=== PATIENT | female | born 1965 | race Caucasian/White ===

== ENCOUNTER 2016-11-26 08:15 | Outpatient (RCR) | payer MEDICARE, MEDICAID ==
[~2016-11-26 08:15] MED LIST: ALBUTEROL0.09 MG/A1 IH; ALEVE220 MG PO; AMLODIPINE5 MG PO; ANORO IH; CIPRO 500MG TA500 MG PO; DESYREL 100MG100 MG PO; DESYREL 50MG50 MG PO; DEXILANT30 MG PO; DEXILANT60 MG PO; DEXOLANT; DILAUDID 2MG TAB2 MG PO; ENTOCORT EC3 MG PO; IMITREX50 MG PO; KEPPRA 500MG500 MG PO; LINZESS290CAP PO; LIPITOR 10MG10 MG PO; LORTAB 5/500 501 TAB PO; LORTAB 7.5/5001 TAB PO; LUNESTA; MOBIC 7.5MG7.5 MG PO; MUCINEX 60600 MG/TAB PO; NEXIUM40 MG PO; NICOTROL NS; NORCO 325 MG-51 TAB PO; NORTRIPTYLINE25 MG PO; NYQUIL; PERCOCET 325 MG1 TA2 PO; PERCOCET 325 MG1 TAB PO; PERCOCET 5/321 UDTAB PO; PHENERGAN 25 TA25 MG PO; PREMARIN 0.9MG0.9 MG PO; PREMARIN0.625 MG PO; RT SPIRIVA18 MCG IH; SOMA 350MG350 MG/TAB PO; SOMA350 MG PO; SPIRIVA18 MCG IH; TOPCARE ASPIRI325 MG PO; TRAZADONE HYDR100 MG PO; XANAX 0.5MG0.5 MG PO; XANAX 1MG1 MG PO; ZOFRAN 4MG T4 MG/TAB PO; ZOFRAN ODT4 MG PO; [UNRECOGNIZED DRUG - CODE] PO; [UNRECOGNIZED DRUG - CODE] PO; [UNRECOGNIZED DRUG - OTHER] PO
== END 2016-12-03 20:19 | disposition still patient (30) ==
LOC: WSPT 08:15
DX: M54.16 Radiculopathy, lumbar region (principal); G89.29 Other chronic pain
CPT/HCPCS: G0283-GP; G8978-GP; G8979-GP; G8980-GP

== ENCOUNTER → 2017-01-17 | Outpatient (CLI) | payer MEDICARE, MEDICAID | LOC: COL.RAD 08:30 | DX: J98.11 Atelectasis (principal); J43.9 Emphysema, unspecified; J98.4 Other disorders of lung; F17.200 Nicotine dependence, unspecified, uncomplicated | CPT/HCPCS: Q9967 ==

== ENCOUNTER → 2017-03-01 | Outpatient (CLI) | payer MEDICARE, MEDICAID ==
[~2017-03-01] VITALS: Ht 162.6 cm; Wt 64.0 kg
[~2017-03-01] MED LIST changes: +NITROSTAT0.4 MG/TAB SL; +VENTOLIN0.09 MG IH
[2017-03-01 06:45] VITALS: BP 113/71; PULSE 78
[2017-03-01 07:55] VITALS: BP 118/663; PULSE 94
[2017-03-01 07:56] VITALS: BP 120/69; PULSE 94
[2017-03-01 07:57] VITALS: BP 125/73; PULSE 92
[2017-03-01 07:58] VITALS: BP 125/71; PULSE 89
== END ==
LOC: COL.CARD 06:23
DX: R07.9 Chest pain, unspecified (principal)
CPT/HCPCS: A9502; J2785

== ENCOUNTER 2017-07-21 03:00 | Emergency (ER) | payer MEDICARE, MEDICAID ==
[~2017-07-21] VITALS: Ht 172.7 cm; Wt 60.0 kg
[2017-07-21 03:06] VITALS: TEMP 98
[2017-07-21 03:43] LABS: COLLECTION METHOD CLEAN CATCH
[2017-07-21 03:49] LABS: BASO # 0.1 (0.0-0.2); EOS # 0.2 (0.0-0.7); EOS % 1.8 % (0-4.0); GRAN # 3.4 (1.4-6.5); HEMATOCRIT 44.3 % (37.0-47.0); HEMOGLOBIN 14.8 g/dl (12.5-16.0); LYMPH # 4.8 (1.2-3.4); LYMPH % 52.1 % (20.0-51.0); MEAN CELL VOLUME 90 fl (80.0-100.0); MEAN CORPUSCULAR HEMOGLOBIN 30 pg (27.0-31.0); MEAN CORPUSCULAR HGB CONC 33 g/dl (33.0-37.0); MEAN PLATELET VOLUME 9.3 fl (7.4-10.4); MONO # 0.7 (0.1-0.6); MONO % 7.8 % (1.7-9.3); PLATELET COUNT 281 K/mm3 (130-400); RED BLOOD COUNT 4.94 M/mm3 (4.10-5.30); REDCELL DISTRIBUTION WIDTH-CV 12.7 % (11.5-14.5)
[2017-07-21 04:02] LABS: MUCOUS Present /lpf; PH 5 (5-8); SQUAMOUS EPITHELIAL 0-2 /hpf; URINE APPEARANCE Clear; URINE BACTERIA None Seen /hpf; URINE BILIRUBIN Negative (NEGATIVE); URINE BLOOD 2+ (NEGATIVE); URINE COLOR Straw; URINE GLUCOSE Negative (NEGATIVE); URINE KETONE Negative (NEGATIVE); URINE LEUKOCYTE ESTERASE Negative (NEGATIVE); URINE NITRATE Negative (NEGATIVE); URINE PROTEIN(semi-quant) Negative (NEGATIVE); URINE RBC 0-2 /hpf; URINE UROBILINOGEN Negative (NEGATIVE)
[2017-07-21 04:10] LABS: TRICYCLIC ANTIDEPRESS URINE NEGATIVE
[2017-07-21 04:20] LABS: ALANINE AMINOTRANSFERASE 24 U/L (9-52); ALBUMIN 4.4 gm/dL (3.5-5.0); ALCOHOL(ethanol),MEDICAL 197 mg/dL; ALKALINE PHOSPHATASE 114 U/L (50-136); ANION GAP 12 mmol/L (7-16); AST,SGOT 24 U/L (15-37); BILIRUBIN,TOTAL 0.3 mg/dL (0.0-1.0); BLOOD UREA NITROGEN 13 mg/dL (7-17); CALCIUM 9.7 mg/dL (8.4-10.2); CARBON DIOXIDE 25 mmol/L (22-30); CHLORIDE 107 mmol/L (98-107); CREATININE, serum 0.59 mg/dL (0.52-1.25); GLUCOSE 108 mg/dL (74-106); SODIUM 144 mmol/L (137-145); TOTAL PROTEIN 7.4 gm/dL (6.4-8.2)
[2017-07-21 04:21] LABS: ACETAMINOPHEN < 10 ug/mL (10-30); SALICYLATE < 1.0 mg/dL
[2017-07-21 10:41] VITALS: BP 102/73; PULSE 96
== END 2017-07-21 10:50 | disposition home or self-care (01) ==
LOC: COL.ER 03:00
PROVIDERS: Emergency Medicine
DX: T42.4X2A Poisoning by benzodiazepines, intentional self-harm, initial encounter (principal); F10.129 Alcohol abuse with intoxication, unspecified; Y90.6 Blood alcohol level of 120-199 mg/100 ml; R45.851 Suicidal ideations; J44.9 Chronic obstructive pulmonary disease, unspecified; F32.9 Major depressive disorder, single episode, unspecified; F17.210 Nicotine dependence, cigarettes, uncomplicated; F12.90 Cannabis use, unspecified, uncomplicated; Z90.89 Acquired absence of other organs; Z90.49 Acquired absence of other specified parts of digestive tract; Z90.710 Acquired absence of both cervix and uterus
CPT/HCPCS: J2765; J7030

== ENCOUNTER 2017-08-29 10:45 | Outpatient (RCR) | payer MEDICARE, MEDICAID | END 2017-11-07 | disposition home or self-care (01) | LOC: WSPT | DX: M76.32 Iliotibial band syndrome, left leg (principal); M76.31 Iliotibial band syndrome, right leg | CPT/HCPCS: G8978-GP; G8979-GP ==

== ENCOUNTER 2018-10-02 05:09 | Emergency (ER) | payer MEDICARE, MEDICAID ==
[~2018-10-02] VITALS: Ht 162.6 cm; Wt 56.4 kg
[2018-10-02 05:11] VITALS: BP 127/103
[2018-10-02] MEDS ORDERED: CRUTCHES MC (05:53)
[2018-10-02] MEDS ORDERED: NORCO 325 MG-51 TAB PO (06:21)
[2018-10-02 07:40] VITALS: PULSE 93; TEMP 96.8
== END 2018-10-02 06:50 | disposition home or self-care (01) ==
LOC: COL.ER 05:09
DX: S82.841A Displaced bimalleolar fracture of right lower leg, initial encounter for closed fracture (principal); I10 Essential (primary) hypertension; G40.909 Epilepsy, unspecified, not intractable, without status epilepticus; J44.9 Chronic obstructive pulmonary disease, unspecified; F31.9 Bipolar disorder, unspecified; E78.5 Hyperlipidemia, unspecified; F17.210 Nicotine dependence, cigarettes, uncomplicated; F10.129 Alcohol abuse with intoxication, unspecified; W10.9XXA Fall (on) (from) unspecified stairs and steps, initial encounter
CPT/HCPCS: Q4045

== ENCOUNTER → 2018-10-05 | Outpatient (CLI) | payer MEDICARE, MEDICAID ==
[~2018-10-05] MED LIST changes: +CRUTCHES MC
== END ==
LOC: COL.RAD 08:00
DX: S82.51XA Displaced fracture of medial malleolus of right tibia, initial encounter for closed fracture (principal); S93.401A Sprain of unspecified ligament of right ankle, initial encounter

== ENCOUNTER 2019-02-16 10:15 | Outpatient (RCR) | payer MEDICARE, MEDICAID | END 2019-04-12 11:05 | disposition home or self-care (01) | LOC: WSC | DX: S82.841A Displaced bimalleolar fracture of right lower leg, initial encounter for closed fracture (principal); Z98.890 Other specified postprocedural states ==

== ENCOUNTER 2019-10-25 19:34 | Inpatient (IN) | payer MEDICARE, MEDICAID ==
[2019-10-25] VITALS (72 sets, daily range): BP systolic 132; BP diastolic 80; PULSE 73; TEMP 98; O2SAT 99–100
[~2019-10-25] VITALS: Ht 162.6 cm; Wt 66.2 kg
[2019-10-25 20:07] LABS: BASO # 0.1 (0.0-0.2); EOS # 0.1 (0.0-0.7); EOS % 1.3 % (0-4.0); GRAN # 4.9 (1.4-6.5); GRAN % 49.7 % (42.2-75.2); HEMATOCRIT 44.4 % (37.0-47.0); HEMOGLOBIN 14.7 g/dl (12.5-16.0); LYMPH # 4.1 (1.2-3.4); LYMPH % 40.7 % (20.0-51.0); MEAN CELL VOLUME 92 fl (80.0-100.0); MEAN CORPUSCULAR HEMOGLOBIN 31 pg (27.0-31.0); MEAN CORPUSCULAR HGB CONC 33 g/dl (33.0-37.0); MEAN PLATELET VOLUME 9.5 fl (7.4-10.4); MONO # 0.7 (0.1-0.6); MONO % 7.1 % (1.7-9.3); PLATELET COUNT 315 K/mm3 (130-400); RED BLOOD COUNT 4.82 M/mm3 (4.10-5.30); REDCELL DISTRIBUTION WIDTH-CV 13.7 % (11.5-14.5)
[2019-10-25 20:18] LABS: ALANINE AMINOTRANSFERASE 187 U/L (4-34); ALBUMIN 4.9 gm/dL (3.5-5.0); ALCOHOL(ethanol),MEDICAL 199 mg/dL; ALKALINE PHOSPHATASE 157 U/L (50-136); ANION GAP 9 mmol/L (7-16); AST,SGOT 260 U/L (15-37); BILIRUBIN,TOTAL 0.7 mg/dL (0.0-1.0); BLOOD UREA NITROGEN 20 mg/dL (7-17); CARBON DIOXIDE 25 mmol/L (22-30); CHLORIDE 106 mmol/L (98-107); GLUCOSE 97 mg/dL (74-106); LACTATE DEHYDROGENASE 1201 U/L (313-618); LIPASE 494 U/L (23-300); POTASSIUM 4.3 mmol/L (3.4-5.0); SODIUM 140 mmol/L (137-145); TOTAL PROTEIN 8.8 gm/dL (6.4-8.2)
[2019-10-25 20:28] LABS: TROPONIN-I < 0.012 ng/mL (0.000-0.035)
--- NOTE | 2019-10-25 22:40 | NUR ---
Patient arrives at this time via ED cart. Patient able to stand with assistance of one. Patient unsteadily walks to unit bed. Patient lays down in bed and is quickly snoring asleep. Attached to unit monitoring equipment and 2L NC continued. Patient awakens to name and can answer short questions, but quickly falls back asleep. Patient answers orientation questions correctly x4, but 10mins later with provider is unable to answer some questions. Assessment complete with no significant findings. Patient is a poor historian due to ETOH intoxication. Med rec is unable to be completed with patient, updated based on pharmacy record. Patient is able to confirm some allergies but becomes confused and falls asleep. Will attempt to reconfirm when she is more awake. Patient has no further needs at this time. Will continue to monitor. Call light within reach. bed alarm on
[2019-10-25] MEDS ORDERED: XANAX2 MG PO (23:09)
[2019-10-25] MEDS ORDERED: LIPITOR20 MG PO (23:14)
[2019-10-25] MEDS ORDERED: LOPID 600M600 MG/TAB PO (23:18)
[2019-10-25] MEDS ORDERED: TOPROL XL 50MG50 MG PO (23:20)
[2019-10-25] MEDS ORDERED: TOPAMAX50 MG PO (23:21)
[2019-10-25] MEDS ORDERED: ZOFRAN 4MG T4 MG/TAB PO (23:22)
[2019-10-26] VITALS (571 sets, daily range): BP systolic 118–138; BP diastolic 65–85; PULSE 63–80; TEMP 97.7–98.2; O2SAT 96–100
--- NOTE | 2019-10-26 04:30 | NUR ---
Patient is much more awake now and is able to answer questions. Med rec complete. Patient resting in bed. States that some pain is coming back in her abdomen and back, but that she is just trying to go back to sleep before requesting more pain meds. Will continue to monitor. Call light within reach. Bed alarm on.
[2019-10-26] MEDS ORDERED: VITAMINC1000TA PO (04:31)
[2019-10-26 04:32] LABS: PHOSPHOROUS 3.9 mg/dL (2.5-4.5)
[2019-10-26] MEDS ORDERED: VIVLODEX10 MG PO (04:42)
[2019-10-26 06:02] LABS: BASO # 0.1 (0.0-0.2); EOS # 0.1 (0.0-0.7); EOS % 1.7 % (0-4.0); GRAN # 3.9 (1.4-6.5); GRAN % 50.9 % (42.2-75.2); HEMATOCRIT 37.2 % (37.0-47.0); LYMPH # 2.8 (1.2-3.4); LYMPH % 36.4 % (20.0-51.0); MEAN CELL VOLUME 95 fl (80.0-100.0); MEAN CORPUSCULAR HEMOGLOBIN 31 pg (27.0-31.0); MEAN CORPUSCULAR HGB CONC 32 g/dl (33.0-37.0); MEAN PLATELET VOLUME 9.6 fl (7.4-10.4); MONO # 0.7 (0.1-0.6); MONO % 9.6 % (1.7-9.3); PLATELET COUNT 255 K/mm3 (130-400); RED BLOOD COUNT 3.92 M/mm3 (4.10-5.30); REDCELL DISTRIBUTION WIDTH-CV 14.1 % (11.5-14.5)
[2019-10-26 06:15] LABS: INR 1.1 (0.8-3.0); PROTHROMBIN TIME 12.2 SECONDS (9.7-12.8)
[2019-10-26 06:16] LABS: ALBUMIN 3.7 gm/dL (3.5-5.0); BILIRUBIN,TOTAL 0.6 mg/dL (0.0-1.0); CALCIUM 8.3 mg/dL (8.4-10.2); CREATININE, serum 0.56 (0.52-1.25); POTASSIUM 4.2 mmol/L (3.4-5.0); TOTAL PROTEIN 6.7 gm/dL (6.4-8.2)
--- NOTE | 2019-10-26 07:20 | NUR ---
Bedside report given to ZAIN Kim.
[2019-10-26 07:35] LABS: COLLECTION METHOD CLEAN CATCH
[2019-10-26 07:41] LABS: MUCOUS Present /lpf; PH 6 (5-8); SQUAMOUS EPITHELIAL 0-2 /hpf; URINE APPEARANCE Clear; URINE BACTERIA None Seen /hpf; URINE BILIRUBIN Negative (NEGATIVE); URINE BLOOD Negative (NEGATIVE); URINE COLOR Yellow; URINE GLUCOSE Negative (NEGATIVE); URINE KETONE Negative (NEGATIVE); URINE LEUKOCYTE ESTERASE Negative (NEGATIVE); URINE NITRATE Negative (NEGATIVE); URINE PROTEIN(semi-quant) Negative (NEGATIVE); URINE RBC 0-2 /hpf; URINE UROBILINOGEN Negative (NEGATIVE)
[2019-10-26 08:09] LABS: TRICYCLIC ANTIDEPRESS URINE NEGATIVE
--- NOTE | 2019-10-26 11:37 | NUR ---
ash worker attended clinical rounding and met with patient to discuss discharge planning. Patient stated she lives in [place] with her spouse and will return there upon discharge. Patient stated she has drank a lot this past week as she is dealing with many issues. Worker advised that patient can receive assistance with alcohol assessment and treatment if she desired. Patient declines offer for resource linkage at this time and states "I can quit on my own". 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 Patient states that 4 years ago her . Patient stated she moved and is remarried at this time. Worker provided emotional support and offered to assist patient if she desired treatment assistance at a later time. Patient's primary care provider is Dr Florence and patient has insurance to obtain her prescriptions.
--- NOTE | 2019-10-26 12:11 | NUR ---
Report given to Jory at 1145. Patient transported to room 314 in wheelchair with belongings in hand. IV infusing well, patient stable, denies any pain at time of transport.
--- NOTE | 2019-10-26 12:46 | NUR ---
Pt arrives to medical unit rm 314 from ICU via WC, awake and alert, oriented x 4. Pt reports slight abd pain, 2 out of 10. IVF's infusing per orders through right wrist site without s/s of complications. POC reviewed with pt. No further needs reported. Call light in reach.
[2019-10-26] MEDS ORDERED: ZENPEP DR PO (17:03)
--- NOTE | 2019-10-26 19:00 | NUR ---
Report with ZAIN Grove. Pt resting in bed, reports pain in abd increasing, PRN medication administered per orders. No further needs reported. Call light in reach.
--- NOTE | 2019-10-26 20:40 | NUR ---
up to restroom and returned to bed. Assessment complete. Lungs clear. Heart sounds normal. Bowels active x4. Pulses strong throughout. No edema noted. IV right wrist infusing without complications. Reports 6 back, midepigastric, and ABD pain. Fentanyl due 2200. Patient aware. Denies other needs at this time. Call light in reach.
--- NOTE | 2019-10-26 22:07 | NUR ---
Reports 9/10 ABD and back pain. Provided with PRN fentanyl at this time. Call light in reach.
--- NOTE | 2019-10-26 23:52 | NUR ---
Up to restroom and returned to bed. Denies needs. Reports 3/10 pain after recent fentanyl adminstration. Call light in reach.
[2019-10-27] VITALS (7 sets, daily range): BP systolic 110–149; BP diastolic 66–86; PULSE 59–79; TEMP 97.6–98.2
--- NOTE | 2019-10-27 02:36 | NUR ---
Reports 10 ABD pain radiating to back. Requested PRN fentanyl. Provided to patient. Denies other needs at this time. Call light in reach.
--- NOTE | 2019-10-27 03:50 | NUR ---
Up to restroom and returned to bed. Denies needs. Reports 3/10 ABD pain at this time. Recently received fentanyl. Call light in reach.
--- NOTE | 2019-10-27 05:54 | NUR ---
Patient reported 7/10 ABD pain this AM. Provided with PRN fentanyl. Required fentanyl throughout night for pain control. Otherwise uneventful night. Resting in bed this AM. Call light in reach.
--- NOTE | 2019-10-27 07:09 | NUR ---
Report given to ZAIN Mcclendon
[2019-10-27 07:36] LABS: BASO # 0.1 (0.0-0.2); BASO % 0.9 % (0.0-2.0); EOS # 0.1 (0.0-0.7); EOS % 2.2 % (0-4.0); GRAN # 3.3 (1.4-6.5); GRAN % 51.4 % (42.2-75.2); HEMOGLOBIN 11.2 g/dl (12.5-16.0); LYMPH # 2.3 (1.2-3.4); LYMPH % 35.7 % (20.0-51.0); MEAN CELL VOLUME 96 fl (80.0-100.0); MEAN CORPUSCULAR HEMOGLOBIN 30 pg (27.0-31.0); MEAN CORPUSCULAR HGB CONC 32 g/dl (33.0-37.0); MEAN PLATELET VOLUME 10.2 fl (7.4-10.4); MONO # 0.6 (0.1-0.6); MONO % 9.5 % (1.7-9.3); PLATELET COUNT 241 K/mm3 (130-400); REDCELL DISTRIBUTION WIDTH-CV 13.7 % (11.5-14.5)
[2019-10-27 07:43] LABS: HEMATOCRIT 35.4 % (37.0-47.0)
[2019-10-27 07:54] LABS: ALBUMIN 3.1 gm/dL (3.5-5.0); BILIRUBIN,TOTAL 0.5 mg/dL (0.0-1.0); CALCIUM 7.7 mg/dL (8.4-10.2); CREATININE, serum 0.54 (0.52-1.25); MAGNESIUM 1.7 mg/dL (1.6-2.3); POTASSIUM 3.6 mmol/L (3.4-5.0); TOTAL PROTEIN 5.8 gm/dL (6.4-8.2)
--- NOTE | 2019-10-27 08:00 | NUR ---
Kevin RN orientee caring for patient, this nurse orienting
[2019-10-27] MEDS ORDERED: THIAMINE 1100 MG/TAB PO (13:59)
[2019-10-27] MEDS ORDERED: FOLIC ACID 11 MG/TA1 PO (13:59)
[2019-10-27] MEDS ORDERED: ROXICODONE 55 MG/TAB PO (14:46)
--- NOTE | 2019-10-27 15:37 | NUR ---
Pt assessment completed and charted, alert. oriented, roomair. Meds given as per JUL. Pt wanted to go home, so arranged for her discharge process. Completed the discharge process and gave her discharge teaching by ZAIN Jerez. Wheeled her down to the ER dept.
--- NOTE | 2019-10-27 15:37 | NUR ---
Pt discharge instructions discussed and reviewed w/ patient who verbalized understanding. All questions answered. No further needs at this time. IV dc'd w/ catheter tip intact. Pt showered prior to departure. Pt escorted out via WC, no complications.
== END 2019-10-27 15:00 | disposition home or self-care (01) | DRG 440 ==
LOC: COL.ER 19:34 → ICU 21:23 → MEDICAL 10-26 12:29
PROVIDERS: Emergency Medicine; Nurse Practitioner Family; ADMIT Internal Medicine
DX: K85.20 Alcohol induced acute pancreatitis without necrosis or infection (principal); I10 Essential (primary) hypertension; E78.5 Hyperlipidemia, unspecified; G40.909 Epilepsy, unspecified, not intractable, without status epilepticus; F31.9 Bipolar disorder, unspecified; F41.9 Anxiety disorder, unspecified; G47.00 Insomnia, unspecified; J44.9 Chronic obstructive pulmonary disease, unspecified; K86.0 Alcohol-induced chronic pancreatitis; K76.0 Fatty (change of) liver, not elsewhere classified; R59.1 Generalized enlarged lymph nodes; F10.229 Alcohol dependence with intoxication, unspecified; F19.10 Other psychoactive substance abuse, uncomplicated; F17.210 Nicotine dependence, cigarettes, uncomplicated; Z88.0 Allergy status to penicillin; Z88.2 Allergy status to sulfonamides; Z88.5 Allergy status to narcotic agent
CPT/HCPCS: 99223-AI; 99232-AI; 99233-AI; 99239; C9113; G0378; J1170; J1650; J2060; J2405; J2550; J3010; J3411; J7030; Q9967

== ENCOUNTER 2020-10-28 08:43 | Emergency (ER) | payer MEDICARE, MEDICAID ==
[~2020-10-28] VITALS: Ht 162.6 cm; Wt 63.6 kg
[~2020-10-28 08:43] MED LIST changes: +FOLIC ACID 11 MG/TA1 PO; +LIPITOR20 MG PO; +LOPID 600M600 MG/TAB PO; +ROXICODONE 55 MG/TAB PO; +THIAMINE 1100 MG/TAB PO; +TOPAMAX50 MG PO; +TOPROL XL 50MG50 MG PO; +VITAMINC1000TA PO; +VIVLODEX10 MG PO; +XANAX2 MG PO; +ZENPEP DR PO
[2020-10-28 09:33] VITALS: TEMP 98.1
[2020-10-28 09:54] LABS: HEMATOCRIT 46.8 % (37.0-47.0); HEMOGLOBIN 14.9 g/dl (12.5-16.0); MEAN CELL VOLUME 84 fl (80.0-100.0); MEAN CORPUSCULAR HEMOGLOBIN 27 pg (27.0-31.0); MEAN CORPUSCULAR HGB CONC 32 g/dl (33.0-37.0); MEAN PLATELET VOLUME 9.4 fl (7.4-10.4); PLATELET COUNT 288 K/mm3 (130-400); REDCELL DISTRIBUTION WIDTH-CV 20.6 % (11.5-14.5)
[2020-10-28 10:02] LABS: ALBUMIN 4.4 gm/dL (3.5-5.0); BILIRUBIN,TOTAL 0.9 mg/dL (0.0-1.0); CALCIUM 9.5 mg/dL (8.4-10.2); CREATININE, serum 0.61 (0.52-1.25); POTASSIUM 4.1 mmol/L (3.4-5.0)
[2020-10-28 10:46] LABS: COLLECTION METHOD CLEAN CATCH
[2020-10-28 10:53] LABS: MUCOUS Present /lpf; PH 5 (5-8); SQUAMOUS EPITHELIAL 0-2 /hpf; URINE APPEARANCE Clear; URINE BACTERIA None Seen /hpf; URINE BILIRUBIN Negative (NEGATIVE); URINE BLOOD Negative (NEGATIVE); URINE COLOR Yellow; URINE GLUCOSE Negative (NEGATIVE); URINE KETONE Negative (NEGATIVE); URINE LEUKOCYTE ESTERASE Negative (NEGATIVE); URINE NITRATE Negative (NEGATIVE); URINE PROTEIN(semi-quant) Negative (NEGATIVE); URINE RBC 0-2 /hpf; URINE UROBILINOGEN >=4.0 mg/dL (NEGATIVE); URINE WBC 0-2 /hpf
[2020-10-28 14:08] VITALS: BP 148/90; PULSE 79
== END 2020-10-28 14:08 | disposition home or self-care (01) ==
LOC: COL.ER 08:43
PROVIDERS: Emergency Medicine; Nurse Practitioner Primary Care
DX: R10.13 Epigastric pain (principal); R73.9 Hyperglycemia, unspecified; I10 Essential (primary) hypertension; E78.5 Hyperlipidemia, unspecified; F17.210 Nicotine dependence, cigarettes, uncomplicated; Z88.6 Allergy status to analgesic agent; Z79.899 Other long term (current) drug therapy; Z90.710 Acquired absence of both cervix and uterus; Z90.49 Acquired absence of other specified parts of digestive tract
CPT/HCPCS: C9113; J1885; J3010; J7030; Q9967

== ENCOUNTER 2020-12-22 10:45 | Outpatient (RCR) | payer MEDICARE, MEDICAID | END 2021-02-24 13:44 | disposition home or self-care (01) | LOC: PT.GENESIS 10:45 | DX: M25.511 Pain in right shoulder (principal) ==

== ENCOUNTER 2021-09-11 07:02 | Day surgery (SDC) | payer MEDICARE, MEDICAID ==
[~2021-09-11] VITALS: Ht 162.6 cm; Wt 69.1 kg
[2021-09-11] MEDS ORDERED: NORVASC 5MG5 MG/TAB PO (07:20)
[2021-09-11] MEDS ORDERED: LIPITOR20 MG PO (07:20)
[2021-09-11] MEDS ORDERED: MOBIC15 MG PO (07:21)
[2021-09-11] MEDS ORDERED: [UNRECOGNIZED DRUG - CODE] PO (07:21)
[2021-09-11 07:23] VITALS: BP 118/81; PULSE 96; TEMP 98.3
[2021-09-11 08:30] VITALS: BP 124/90; PULSE 80; TEMP 98.1
[2021-09-11 08:45] VITALS: BP 121/90; PULSE 86; TEMP 98
[2021-09-11 09:00] VITALS: BP 120/78; PULSE 81
[2021-09-11 09:15] VITALS: PULSE 79
--- NOTE | 2021-09-11 09:18 | NUR ---
patient arrived back from colonoscopy at this time, alert/oriented, VSS, denies discsomfort
--- NOTE | 2021-09-11 09:29 | NUR ---
Patient continues to do well post endoscopy, alert/oriented, vitals stable, toleraitng PO intake well without any N/V, has been by to discuss findings , I have reviewed discharge instrucitons with her, IV removed, she is leaving with significant other and we are escorting them out the door at this time
== END 2021-09-11 10:06 | disposition home or self-care (01) ==
LOC: SDCO 07:02
DX: Z12.11 Encounter for screening for malignant neoplasm of colon (principal); K52.89 Other specified noninfective gastroenteritis and colitis; Z86.010 Personal history of colon polyps
CPT/HCPCS: J2704; J7030

== ENCOUNTER → 2023-02-15 | Outpatient (CLI) | payer MEDICARE, MEDICAID ==
[~2023-02-15] MED LIST changes: +MOBIC15 MG PO; +NORVASC 5MG5 MG/TAB PO; +[UNRECOGNIZED DRUG - CODE] PO
== END ==
LOC: CANSCHCLI → COL.CARD 12:45 → COL.PUL 13:00 → COL.CARD 13:00 → COL.RAD 13:00
DX: R06.02 Shortness of breath (principal); R06.09 Other forms of dyspnea
CPT/HCPCS: Q9967

== ENCOUNTER → 2023-06-10 | Outpatient (CLI) | payer MEDICARE, MEDICAID | LOC: MC.RAD 10:47 | DX: Z12.31 Encounter for screening mammogram for malignant neoplasm of breast (principal) ==

== ENCOUNTER 2024-02-09 14:15 | Emergency (ER) | payer MEDICARE, MEDICAID ==
[~2024-02-09] VITALS: Ht 162.6 cm; Wt 63.6 kg
[2024-02-09 14:19] VITALS: TEMP 98.5
[2024-02-09] MEDS ORDERED: Ondansetron 4 MG/2 ML VIAL IV ONE (15:30)
[2024-02-09] MEDS ORDERED: NS 1,000 ML IV ONE (15:30)
[2024-02-09] MEDS ORDERED: HYDROmorphone 0.5 MG/0.5 ML SYRINGE IV ONE ×2 (15:30→18:15)
[2024-02-09 15:34] LABS: BASO # 0.1 K/mm3 (0.0-0.2); BASO % 0.7 % (0.0-2.0); GRAN # 8.9 K/mm3 (1.4-6.5); GRAN % 73.4 % (42.2-75.2); HEMATOCRIT 44.2 % (37.0-47.0); HEMOGLOBIN 14.4 g/dl (12.5-16.0); LYMPH # 2.2 K/mm3 (1.2-3.4); LYMPH % 18.2 % (20.0-51.0); MEAN CELL VOLUME 86 fl (80.0-100.0); MEAN CORPUSCULAR HEMOGLOBIN 28 pg (27-31); MEAN CORPUSCULAR HGB CONC 33 g/dl (33.0-37.0); MEAN PLATELET VOLUME 11.5 fl (7.4-10.4); MONO # 0.9 K/mm3 (0.1-0.6); PLATELET COUNT 357 K/mm3 (130-400); RED BLOOD COUNT 5.13 M/mm3 (4.10-5.30); REDCELL DISTRIBUTION WIDTH-CV 14.6 % (11.5-14.5)
[2024-02-09 15:34] LABS: COLLECTION METHOD CLEAN CATCH
[2024-02-09 15:47] LABS: URINE APPEARANCE CLEAR (CLEAR/HAZY); URINE BLOOD NEGATIVE (NEGATIVE); URINE COLOR YELLOW (YELLOW); URINE GLUCOSE NEGATIVE (NEGATIVE); URINE KETONE TRACE (NEGATIVE); URINE NITRATE NEGATIVE (NEGATIVE); URINE PROTEIN(semi-quant) 1+ (NEGATIVE)
[2024-02-09 15:53] LABS: ALBUMIN 3.9 g/dL (3.4-4.8); BILIRUBIN,TOTAL 0.4 mg/dL (0.2-1.2); C-REACTIVE PROTEIN 0.57 mg/dL (0.00-0.50); CALCIUM 10.3 mg/dL (8.4-10.2); CREATININE, serum 0.77 mg/dL (0.57-1.11); ERYTHROCYTE SEDIMENTATION RATE 7 mm/hr (0-30); POTASSIUM 3.5 mEq/L (3.5-4.5); TOTAL PROTEIN 7.3 g/dl (6.2-8.1)
[2024-02-09 15:59] LABS: TROPONIN-I 0.014 ng/mL (0.00-0.033)
[2024-02-09] MEDS ORDERED: NS 50 ML IV SCH (16:15)
[2024-02-09] MEDS ORDERED: Iohexol 300 - 100 ML VIAL IV ONE (16:15)
[2024-02-09] MEDS ORDERED: Sucralfate Susp 1 GM/10 ML UD PO ONE (17:15)
[2024-02-09] MEDS ORDERED: VICODIN 5/300 PO (18:18)
[2024-02-09] MEDS ORDERED: CARAFATE S1 GM/10 ML PO (18:18)
[2024-02-09] MEDS ORDERED: Home HYDROcodone/Acetaminophen 5/325 MG #4 TABS/PACK PO ONE (18:30)
[2024-02-09 18:50] VITALS: BP 143/78; PULSE 76
== END 2024-02-09 18:50 | disposition home or self-care (01) ==
LOC: COL.ER 14:15
PROVIDERS: Emergency Medicine
DX: K29.70 Gastritis, unspecified, without bleeding (principal)
CPT/HCPCS: J1171; J2405; J2765; J7030; Q9967